=== PATIENT | female | born 1965 | race Asian ===

== ENCOUNTER 2017-09-14 04:17 | Emergency (ER) | payer BC ==
[~2017-09-14] VITALS: Ht 152.4 cm; Wt 78.0 kg
[2017-09-14 04:29] VITALS: TEMP 98.3
[2017-09-14 05:08] LABS: PLATELET COUNT 305 K/uL (152-353)
[2017-09-14 08:18] VITALS: BP 129/78
== END 2017-09-14 08:18 | disposition home or self-care (01) ==
LOC: ED 04:17
DX: N39.0 Urinary tract infection, site not specified (principal); R11.2 Nausea with vomiting, unspecified; R53.1 Weakness; R10.9 Unspecified abdominal pain
CPT/HCPCS: 36415; 80053; 81000; 85027; 87077; 87086; 87088; 87186; 96360; 96365; 96375; 99284; J0696; J1885; J2405; Q9963

== ENCOUNTER 2017-09-17 14:54 | Emergency (ER) | payer BC ==
[~2017-09-17] VITALS: Ht 152.4 cm; Wt 78.0 kg
[2017-09-17 15:00] VITALS: TEMP 99.9
[2017-09-17 15:53] LABS: PLATELET COUNT 332 K/uL (152-353)
[2017-09-17 16:21] VITALS: BP 131/71
== END 2017-09-17 16:21 | disposition home or self-care (01) ==
LOC: ED 14:54
DX: A08.39 Other viral enteritis (principal)
CPT/HCPCS: 36415; 85027; 99283